=== PATIENT | male | born 1970 | race Caucasian/White ===

== ENCOUNTER 2017-02-12 14:13 | Emergency (ER) | payer SELFPAY ==
[2017-02-12 14:22] VITALS: BP 146/91
[2017-02-12] MEDS ORDERED: HYDROcodone/ACETAMIN 5-325 MG* 1 TAB PO ONE (14:34)
[2017-02-12] MEDS ORDERED: Cephalexin CAP* 500 MG PO ONE (14:35)
[2017-02-12] MEDS ORDERED: Benzoin Compound STICK ONE (14:38)
--- NOTE | 2017-02-12 14:45 | UC ---
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 his left thumb on frame he is left handed he states his tetanus is up to date he vigorous flushed it at home upon seeing his laceration here he declines me doing a digital block and flushing his laceration he declines xr - History Of Current Complaint Chief Complaint: UCUpperExtremity Stated Complaint: THUMB INJURY Time Seen by Provider: 02/12/17 14:23 Hx Obtained From: Patient Onset/Duration: Sudden Onset Severity Initially: Severe Severity Currently: Severe Pain Intensity: 8 Pain Scale Used: 0-10 Numeric Character Of Pain: Aching, Throbbing Aggravating Factor(s): Movement Alleviating: Compression Related History: Dominant Hand Left - Allergies/Home Medications Allergies/Adverse Reactions: Allergies Allergy/AdvReac Type Severity Reaction Status Date / Time No Known Allergies Allergy Verified 09/27/14 13:40 PMH/Surg Hx/FS Hx/Imm Hx Previously Healthy: Yes Endocrine History Of: Denies: Diabetes, Thyroid Disease Cardiovascular History Of: Reports: Hypertension Denies: Cardiac Disorders Respiratory History Of: Denies: COPD, Asthma GI/ History Of: Denies: Ulcer - Surgical History Surgical History: Yes Surgery Procedure, Year, and Place: multiple surgical repairs from back hoe accident February 2013 - Family History Known Family History: Positive: Hypertension - Social History Alcohol Use: None Substance Use Type: None Smoking Status (MU): Light Every Day Tobacco Smoker Type: eCigarettes Amount Used/How Often: 1/2 ppd Review of Systems Constitutional: Negative Skin: Negative Eyes: Negative ENT: Negative Respiratory: Negative Cardiovascular: Negative Gastrointestinal: Negative Genitourinary: Negative Motor: Negative Neurovascular: Negative Musculoskeletal: Negative Neurological: Negative Psychological: Negative All Other Systems Reviewed And Are Negative: Yes Physical Exam Triage Information Reviewed: Yes Appearance: Well-Appearing, No Pain Distress, Well-Nourished Vital Signs: Initial Vital Signs Temp 98.7 F 02/12/17 14:19 Pulse 101 02/12/17 14:19 Resp 18 02/12/17 14:19 BP 146/91 02/12/17 14:19 Pulse Ox 96 02/12/17 14:19 Vital Signs Reviewed: Yes Eyes: Positive: Conjunctiva Clear ENT: Positive: Hearing grossly normal. Negative: Nasal congestion, Nasal drainage, Trismus, Muffled/hoarse voice Dental: Negative: Abscess @ Neck: Positive: Supple, Nontender Respiratory: Positive: Lungs clear, Normal breath sounds, No respiratory distress Cardiovascular: Positive: RRR, No Murmur Musculoskeletal: Positive: ROM Intact, No Edema Neurological: Positive: Alert Psychological Exam: Normal Skin Exam: Other - see image Procedures - Laceration/Wound Repair 1 Location: Other - left thumb (see image Description: Stellate Length, Depth and Shape: 1.2cm long, <1mm wide, unable to access depth (lac sealed shut) Betadine Prep?: No Irrigated w/ Saline (ccs): 0 - refused Laceration/Wound Explored: clean Closure: SteriStrips Layer Closure?: No Sterile Dressing Applied?: Yes Hand/Wrist Course/Dx - Course Course Of Treatment: refused digital block and sutures/removal of portion of nail to check nail bed. aware that this increases the risk of wound infection - Differential Dx/Diagnosis Provider Diagnoses: left thumb laceration. steri strip repair Discharge - Discharge Plan Condition: Stable Disposition: HOME Prescriptions: Cephalexin CAP* [Keflex 500 CAP*] 500 mg PO QID #28 cap HYDROcodone/ACETAMIN 5-325 MG* [Gary 5-325 TAB*] 1 tab PO Q4H PRN #6 tab MDD 6 PRN Reason: Pain Ibuprofen TAB* [Motrin TAB* 600 MG] 600 mg PO QID PRN #40 tab PRN Reason: Pain Patient Education Materials: Steristrips (ED) Forms: *Work Release Referrals: Yosef Gruber MD [Primary Care Provider] - 1 Week (if not better) Additional Instructions: elevate splint for comfort recheck for concerns of infection Images Hands: 1 - lac 2 - lac
== END 2017-02-12 15:16 | disposition home or self-care (01) ==
LOC: UCEAST 14:13
DX: S61.012A Laceration without foreign body of left thumb without damage to nail, initial encounter (principal); W45.8XXA Other foreign body or object entering through skin, initial encounter; Y93.9 Activity, unspecified; Y99.9 Unspecified external cause status; I10 Essential (primary) hypertension; F17.210 Nicotine dependence, cigarettes, uncomplicated
CPT/HCPCS: 99213; A9270-GY; G0463

== ENCOUNTER 2018-10-12 14:06 | Emergency (ER) | payer OTHER ==
[2018-10-12 14:20] VITALS: BP 145/97
--- NOTE | 2018-10-12 15:04 | UC ---
Bite Injury/Animal HPI - HPI Summary HPI Summary: Pt's dog got into a fight today with other dogs, pt trid to break it up and sustained 3 lacerations to R forearm. Dogs are all UTD with vaccines. Pt is currently taking abx for dental infection. Denies numbness or weakness in hand. Pt is UTD with Tdap, thinks he got it within the last year. - History of Current Complaint Chief Complaint: UCBiteInjury Stated Complaint: DOG BITE Time Seen by Provider: 10/12/18 14:48 Hx Obtained From: Patient Severity Currently: Moderate Severity Initially: Moderate Pain Intensity: 7 Onset/Duration: Sudden Onset Type of Bite: Animal Has Animal Been Immunized?: Yes Character: Full-Thickness Aggravating Factor(s): Exertion Alleviating Factor(s): Rest Associated Signs And Symptoms: Positive: Negative Hx of Bite: Provoked by: Animal Available for Observation: Yes Animal Control Notified: Yes - Allergies/Home Medications Allergies/Adverse Reactions: Allergies Allergy/AdvReac Type Severity Reaction Status Date / Time No Known Allergies Allergy Verified 10/12/18 14:20 PMH/Surg Hx/FS Hx/Imm Hx Cardiovascular History: Hypertension GI/ History: Gastroesophageal Reflux Psychological History: Depression - Surgical History Surgical History: Yes Surgery Procedure, Year, and Place: multiple surgical repairs from back hoe accident February 2013 - Family History Known Family History: Positive: Hypertension - Social History Alcohol Use: None Substance Use Type: None Smoking Status (MU): Former Smoker Type: eCigarettes Amount Used/How Often: 1/2 ppd Review of Systems All Other Systems Reviewed And Are Negative: Yes Constitutional: Positive: Negative Skin: Positive: Other - lacerations to arm Eyes: Positive: Negative ENT: Positive: Negative Respiratory: Positive: Negative Cardiovascular: Positive: Negative Gastrointestinal: Positive: Negative Genitourinary: Positive: Negative Motor: Positive: Negative Neurovascular: Positive: Negative Musculoskeletal: Positive: Negative Neurological: Positive: Negative Psychological: Positive: Negative Is Patient Immunocompromised?: Yes Physical Exam Triage Information Reviewed: Yes Appearance: Well-Appearing, No Pain Distress, Well-Nourished Vital Signs: Initial Vital Signs Temp 98.7 F 10/12/18 14:15 Pulse 116 10/12/18 14:15 Resp 18 10/12/18 14:15 BP 145/97 10/12/18 14:15 Pulse Ox 100 10/12/18 14:15 Vital Signs Reviewed: Yes Eye Exam: Normal Eyes: Positive: Conjunctiva Clear ENT Exam: Normal ENT: Positive: Normal ENT inspection, Hearing grossly normal, Pharynx normal, TMs normal Neck exam: Normal Neck: Positive: Supple, Nontender, No Lymphadenopathy Respiratory Exam: Normal Respiratory: Positive: Chest non-tender, Lungs clear, Normal breath sounds, No respiratory distress Cardiovascular Exam: Normal Cardiovascular: Positive: RRR Musculoskeletal Exam: Other - 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 One small PW on volar aspect of arm. Procedures - Laceration/Wound Repair 1 Location: upper extremity Description: Linear Betadine Prep?: Yes Laceration/Wound Explored: no foreign body removed, Other - flushed copiously with saline Closure: Farrukh #__ - 2 Layer Closure?: No Sterile Dressing Applied?: No Bite Injury Course/Dx - Differential Dx/Diagnosis Provider Diagnosis: Laceration of forearm, right, Dog bite of right forearm without complication Discharge - Sign-Out/Discharge Documenting (check all that apply): Patient Departure All imaging exams completed and their final reports reviewed: No Studies - Discharge Plan Condition: Stable Disposition: HOME Prescriptions: Amoxicillin/Clavulanate TAB* [Augmentin TAB 875*] 875 mg PO BID #10 tab Patient Education Materials: Animal Bite (ED), Staple Care (ED) Referrals: Yosef Gruber MD [Primary Care Provider] - Additional Instructions: Please get the farrukh removed in 7-9 days either here or with your primary care provider. If you see redness, swelling, or streaking from the wound, please get seen again right away. - Billing Disposition and Condition Condition: STABLE Disposition: Home
== END 2018-10-12 15:35 | disposition home or self-care (01) ==
LOC: UCEAST 14:06
DX: S51.811A Laceration without foreign body of right forearm, initial encounter (principal); I10 Essential (primary) hypertension; Z87.891 Personal history of nicotine dependence; Y92.9 Unspecified place or not applicable; W54.0XXA Bitten by dog, initial encounter
CPT/HCPCS: 12002; 99212; G0463